=== PATIENT | female | born 1970 | race Caucasian/White ===

== ENCOUNTER 2018-05-28 09:24 | Outpatient (CLI) | payer OTHER ==
[2018-05-28 11:56] LABS: CREATININE,URINE 54.7 mg/dL; PROTEIN/CREATININE RATIO,URINE 0.2 (<=0.2)
== END 2018-05-28 09:25 | disposition home or self-care (01) ==
LOC: LAB.R 09:24
PROVIDERS: ATTEND Student in an Organized Health Care Education/Training Program
DX: R80.9 Proteinuria, unspecified (principal)
CPT/HCPCS: 82570; 84156

== ENCOUNTER 2018-05-30 12:27 | Outpatient (CLI) | payer OTHER ==
[2018-05-30 12:51] LABS: HGB - HEMOGLOBIN 13.8 g/dL (12.0-16.0)
[2018-05-30 13:11] LABS: CALCIUM 9.1 mg/dL (8.5-10.3); CREATININE 0.9 mg/dL (0.4-1.0)
== END 2018-05-30 12:28 | disposition home or self-care (01) ==
LOC: LAB 12:27
PROVIDERS: ATTEND Student in an Organized Health Care Education/Training Program
DX: N05.9 Unspecified nephritic syndrome with unspecified morphologic changes (principal); R80.9 Proteinuria, unspecified; D64.9 Anemia, unspecified
CPT/HCPCS: 36415; 80048; 85014; 85018

== ENCOUNTER 2018-09-20 07:19 | Emergency (ER) | payer OTHER ==
[2018-09-20 07:28] VITALS: BP 148/87
[2018-09-20 08:00] LABS: BILIRUBIN,URINE NEGATIVE (NEGATIVE); GLUCOSE, URINE (UA) NEGATIVE (NEGATIVE); KETONES,URINE (UA) NEGATIVE (NEGATIVE); LEUKOCYTE ESTERASE, URINE NEGATIVE (NEGATIVE); NITRITE,URINE NEGATIVE (NEGATIVE); OCCULT BLOOD,URINE NEGATIVE (NEGATIVE); PROTEIN,URINE NEGATIVE (NEGATIVE); UROBILINOGEN,URINE 0.2 (NORMAL) E.U./dL (NORMAL)
[2018-09-20 08:02] LABS: CLARITY,URINE CLEAR (CLEAR); HCG UR QUAL NEGATIVE
--- NOTE | 2018-09-20 08:30 | ED Physician Documentation ---
PD HPI BACK PAIN - Stated complaint Stated Complaint: BACK PX - Chief complaint Chief Complaint: Back Pain - History obtained from History obtained from: Patient - History of Present Illness Timing - onset: How many days ago (2) Timing - duration: Years (10) Timing - details: Gradual onset, Intermittant Pain level max: 7 Pain level now: 7 Location: Lower, Left Quality: Pain, Spasm, Similar to prior episodes Associated symptoms: No: Fever, Weakness, Numbness, Incontinent of urine, Hematuria, Incontinent of stool Improves with: Nothing Worsened by: Movement Contributing factors: No: Trauma Similar symptoms before: Work up / diagnostics Recently seen: Not recently seen - Additional information Additional information: 48-year-old menopausal woman here with history of chronic back pain the past 10 years because she was rough with her back and worked in the here with complain of flaring up of her chronic back pain the past 2 days. Patient denies any recent trauma, twisting injuries. She denies any associated numbness or incontinence. Patient states she had been workup including an MRI at [facility] in [place] Which showed herniated disc of L2-S1, spinal stenosis in degenerative joint disease. 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 She stated she had a Vicodin from 3 years ago but did not take it.She also has not taken any Tylenol. Review of Systems Ten Systems: 10 systems reviewed and negative Constitutional: denies: Fever, Myalgias Cardiac: denies: Chest pain / pressure Respiratory: denies: Dyspnea GI: denies: Abdominal Pain, Nausea, Vomiting, Constipation : denies: Dysuria, Frequency Skin: denies: Rash Musculoskeletal: reports: Back pain. denies: Extremity pain, Extremity swelling Neurologic: denies: Generalized weakness, Focal weakness, Numbness PD PAST MEDICAL HISTORY - Past Medical History Past Medical History: Yes Musculoskeletal: Chronic back pain - Past Surgical History Past Surgical History: No - Present Medications Home Medications: Ambulatory Orders Medication Instructions Recorded Confirmed Cyclobenzaprine [Flexeril] 10 mg PO TID PRN #20 tablet 09/20/18 Furosemide [Lasix] 20 mg PO DAILY 09/20/18 09/20/18 Hydrocodone/Acetaminophen 1 - 2 each PO Q6H PRN #14 tablet 09/20/18 [Hydrocodon-Acetaminophen 5-325] Lidocaine Patch 5% [Lidoderm Patch] 1 patch TOP DAILY PRN #10 patch 09/20/18 PARoxetine [Paxil] 20 mg PO DAILY 09/20/18 09/20/18 RX: Losartan [Cozaar] 50 mg PO BID 09/20/18 09/20/18 RX: Metoprolol Tartrate 50 mg PO BID 09/20/18 09/20/18 - Allergies Allergies/Adverse Reactions: Allergies Allergy/AdvReac Type Severity Reaction Status Date / Time codeine Allergy Hives Verified 09/20/18 07:29 ciprofloxacin [From Cipro] AdvReac Cramps Verified 09/20/18 07:29 NSAIDS (Non-Steroidal AdvReac Unknown Verified 09/20/18 07:29 Anti-Inflamma - Social History Does the pt smoke?: No Smoking Status: Never smoker Does the pt drink ETOH?: No Does the pt have substance abuse?: No - Immunizations Immunizations are current?: Yes - POLST Patient has POLST: No PD ED PE NORMAL - Vitals Vital signs reviewed: Yes - General General: Alert and oriented X 3, No acute distress, Well developed/nourished - HEENT HEENT: Moist mucous membranes - Neck Neck: Supple, no meningeal sign - Cardiac Cardiac: RRR, No murmur - Respiratory Respiratory: Clear bilaterally - Abdomen Abdomen: Normal bowel sounds, Soft, Non tender, Non distended - Back Back: No CVA TTP, No spinal TTP, Other (Positive left leg raising. Appears uncomfortable when she is turning and attempting to sit up.) - Derm Derm: Warm and dry - Extremities Extremities: No deformity, No tenderness to palpate, Normal ROM s pain, No edema - Neuro Neuro: Alert and oriented X 3, No motor deficit, No sensory deficit - Psych Psych: Normal mood, Normal affect Results - Vitals Vitals: Vital Signs - 24 hr 09/20/18 07:24 Temperature 36.0 C L Heart Rate 78 Respiratory 16 Rate Blood Pressure 148/87 H O2 Saturation 99 Oxygen O2 Source Room air - Labs Labs: Laboratory Tests 09/20/18 07:47 Urine Color YELLOW Urine Clarity CLEAR Urine pH 6.0 Ur Specific Cucumber 1.010 Urine Protein NEGATIVE Urine Glucose (UA) NEGATIVE Urine Ketones NEGATIVE Urine Occult Blood NEGATIVE Urine Nitrite NEGATIVE Urine Bilirubin NEGATIVE Urine Urobilinogen 0.2 (NORMAL) Ur Leukocyte Esterase NEGATIVE Ur Microscopic Review NOT INDICATED Urine Culture Comments NOT INDICATED Urine HCG, Qual NEGATIVE PD MEDICAL DECISION MAKING - ED course Complexity details: considered differential (Chronic back pain flareup,Lumbar strain, DJD), d/w patient Departure - Departure Disposition: 01 Home, Self Care Clinical Impression: Back pain Qualifiers: Back pain location: low back pain Chronicity: chronic Back pain laterality: left Sciatica presence: with sciatica Sciatica laterality: sciatica of left side Qualified Code(s): M54.42 - Lumbago with sciatica, left side; G89.29 - Other chronic pain Sciatica Qualifiers: Laterality: left Qualified Code(s): M54.32 - Sciatica, left side Condition: Stable Instructions: ED Neck Back Pain General Prescriptions: Cyclobenzaprine [Flexeril] 10 mg PO TID PRN #20 tablet PRN Reason: Spasms Hydrocodone/Acetaminophen [Hydrocodon-Acetaminophen 5-325] 1 - 2 each PO Q6H PRN #14 tablet PRN Reason: pain Lidocaine Patch 5% [Lidoderm Patch] 1 patch TOP DAILY PRN #10 patch PRN Reason: pain Comments: Maintain safety while taking the muscle relaxant and pain medication. Avoid constipation by taking [id number] stool softener, drinking lots of water and eating high-fiber foods. Follow-up with your primary doctor in a week for reevaluation and referral to pain management. If worse return to the emergency room. Forms: Activity restrictions Discharge Date/Time: 09/20/18 08:54
== END 2018-09-20 08:54 | disposition home or self-care (01) ==
LOC: ED 07:19
DX: N05.0 Unspecified nephritic syndrome with minor glomerular abnormality (principal); G89.29 Other chronic pain; M54.42 Lumbago with sciatica, left side
CPT/HCPCS: 81001; 81003; 81025; 87086; 99283

== ENCOUNTER 2018-12-18 07:54 | Emergency (ER) | payer BC, OTHER ==
[2018-12-18 08:08] VITALS: BP 157/94
[2018-12-18] MEDS ORDERED: DEXAMETHASONE 10 MG/ML VIAL PO STA (08:11)
--- NOTE | 2018-12-18 08:14 | ED Physician Documentation ---
PD HPI BACK PAIN - Stated complaint Stated Complaint: BACK PX - Chief complaint Chief Complaint: Back Pain - History obtained from History obtained from: Patient, Family - History of Present Illness Timing - onset: How many days ago (3) Timing - duration: Days (3) Timing - details: Gradual onset, Still present Location: Lower, Left Quality: Pain, Spasm, Sharp, Similar to prior episodes Associated symptoms: Incontinent of urine. No: Fever, Weakness, Numbness, Unable to urinate, Hematuria, Incontinent of stool Improves with: Rest, Position, Meds Worsened by: Movement Contributing factors: Other (does not know of specific injury) Similar symptoms before: Diagnosis (sciatica) Recently seen: Not recently seen - Additional information Additional information: 48-year-old female with chronic low back pain has developed an exacerbation of her pain over the past 3 days and she is quite uncomfortable with this. She is had similar episode in August of last year. She does not know of a specific loading injury to her back associated with this episode. She has been using a heating pack which feels good while it is on but has not resolved the situation. Patient has remaining muscle relaxant from her prior visit. Review of Systems Constitutional: denies: Fever Eyes: denies: Decreased vision Ears: denies: Ear pain Nose: denies: Congestion Throat: denies: Sore throat Cardiac: denies: Chest pain / pressure, Palpitations Respiratory: denies: Dyspnea, Cough GI: denies: Abdominal Pain, Nausea, Vomiting : reports: Incontinent ("leaks"). denies: Dysuria, Frequency Skin: denies: Rash Musculoskeletal: reports: Back pain. denies: Neck pain, Extremity pain PD PAST MEDICAL HISTORY - Past Medical History Musculoskeletal: Chronic back pain - Past Surgical History Past Surgical History: No - Present Medications Home Medications: Ambulatory Orders Medication Instructions Recorded Confirmed Cyclobenzaprine [Flexeril] 10 mg PO TID PRN #20 tablet 09/20/18 Furosemide [Lasix] 20 mg PO DAILY 09/20/18 09/20/18 Hydrocodone/Acetaminophen 1 - 2 each PO Q6H PRN #14 tablet 09/20/18 [Hydrocodon-Acetaminophen 5-325] Lidocaine Patch 5% [Lidoderm Patch] 1 patch TOP DAILY PRN #10 patch 09/20/18 Losartan [Cozaar] 50 mg PO BID 09/20/18 09/20/18 Metoprolol Tartrate 50 mg PO BID 09/20/18 09/20/18 PARoxetine [Paxil] 20 mg PO DAILY 09/20/18 09/20/18 Hydrocodone/Acetaminophen 1 - 2 each PO Q6H PRN #14 tablet 12/18/18 [Hydrocodon-Acetaminophen 5-325] - Allergies Allergies/Adverse Reactions: Allergies Allergy/AdvReac Type Severity Reaction Status Date / Time codeine Allergy Hives Verified 09/20/18 07:29 Penicillins Allergy Unknown Verified 12/18/18 08:09 ciprofloxacin [From Cipro] AdvReac Cramps Verified 09/20/18 07:29 NSAIDS (Non-Steroidal AdvReac Unknown Verified 09/20/18 07:29 Anti-Inflamma - Social History Does the pt smoke?: No Smoking Status: Never smoker Does the pt drink ETOH?: No Does the pt have substance abuse?: No - Immunizations Immunizations are current?: Yes - POLST Patient has POLST: No PD ED PE NORMAL - Vitals Vital signs reviewed: Yes (hypertensive) - General General: Alert and oriented X 3, No acute distress, Well developed/nourished - HEENT HEENT: Atraumatic, PERRL, EOMI - Respiratory Respiratory: No respiratory distress - Back Back: No CVA TTP, No spinal TTP, Other (There is paraspinous muscle tenderness to the left lower lumbar area extending into the sciatic notch on the left side. ) - Derm Derm: Normal color, Warm and dry, No rash - Extremities Extremities: No deformity, No edema, Other (symetric dorsiflexion. ) - Neuro Neuro: Alert and oriented X 3, No motor deficit, No sensory deficit, Normal speech Eye Opening: Spontaneous Motor: Obeys Commands Verbal: Oriented GCS Score: 15 - Psych Psych: Normal mood, Normal affect Results - Vitals Vitals: Vital Signs - 24 hr 12/18/18 08:05 Temperature 36.5 C Heart Rate 75 Respiratory 18 Rate Blood Pressure 157/94 H O2 Saturation 99 Oxygen O2 Source Room air PD MEDICAL DECISION MAKING - ED course Complexity details: considered differential, d/w patient, d/w family ED course: 48-year-old female with a 3-day history of sciatica is administered dexamethasone and we will put her on some pain medication muscle relaxant she will follow-up with her primary. Departure - Departure Disposition: Home, Self Care Clinical Impression: Sciatica Qualifiers: Laterality: left Qualified Code(s): M54.32 - Sciatica, left side Condition: Stable Instructions: ED Sciatica [facility] [Other] Prescriptions: Hydrocodone/Acetaminophen [Hydrocodon-Acetaminophen 5-325] 1 - 2 each PO Q6H PRN #14 tablet PRN Reason: pain Forms: Activity restrictions
== END 2018-12-18 08:47 | disposition home or self-care (01) ==
LOC: ED 07:54
DX: M54.32 Sciatica, left side (principal)
CPT/HCPCS: 99283

== ENCOUNTER 2019-05-12 09:04 | Emergency (ER) | payer OTHER ==
[2019-05-12 09:15] VITALS: BP 147/103
--- NOTE | 2019-05-12 09:56 | ED Physician Documentation ---
PD HPI GI BLEED - Stated complaint Stated Complaint: FEMALE - Chief complaint Chief Complaint: Abd Pain - History obtained from History obtained from: Patient - History of Present Illness Timing - onset: Today Timing - duration: Hours Timing - details: Abrupt onset, Now resolved Associated symptoms: BRBPR Contributing factors: Other (recently not eating well) Similar symptoms before: Diagnosis (rectal tear) Recently seen: Not recently seen - Additional information Additional information: 49-year-old female with a history of irritable bowel syndrome had a bowel movement this morning and following that she went to wipe had blood on the paper and on the stool in the commode. She has a history of irritable bowel and she has not been eating well recently she had a bout of diarrhea over the past week. She has had similar issue a number of times previously related to hemorrhoids. Review of Systems Constitutional: denies: Fever Eyes: denies: Decreased vision Ears: denies: Ear pain Nose: denies: Congestion Throat: denies: Sore throat Respiratory: denies: Cough GI: reports: Diarrhea, Bloody / black stool. denies: Abdominal Pain, Nausea, Vomiting : denies: Dysuria, Frequency Skin: denies: Rash Musculoskeletal: denies: Neck pain, Back pain, Extremity pain PD PAST MEDICAL HISTORY - Past Medical History Past Medical History: Yes Musculoskeletal: Chronic back pain - Past Surgical History Past Surgical History: No - Present Medications Home Medications: Ambulatory Orders Medication Instructions Recorded Confirmed Cyclobenzaprine [Flexeril] 10 mg PO TID PRN #20 tablet 09/20/18 Furosemide [Lasix] 20 mg PO DAILY 09/20/18 09/20/18 Hydrocodone/Acetaminophen 1 - 2 each PO Q6H PRN #14 tablet 09/20/18 [Hydrocodon-Acetaminophen 5-325] Lidocaine Patch 5% [Lidoderm Patch] 1 patch TOP DAILY PRN #10 patch 09/20/18 Losartan [Cozaar] 50 mg PO BID 09/20/18 09/20/18 Metoprolol Tartrate 50 mg PO BID 09/20/18 09/20/18 PARoxetine [Paxil] 20 mg PO DAILY 09/20/18 09/20/18 Hydrocodone/Acetaminophen 1 - 2 each PO Q6H PRN #14 tablet 12/18/18 [Hydrocodon-Acetaminophen 5-325] Hydrocortisone/Pramoxine 1 gm RC DAILY #10 gm 05/12/19 [Proctofoam-Hc Foam] - Allergies Allergies/Adverse Reactions: Allergies Allergy/AdvReac Type Severity Reaction Status Date / Time codeine Allergy Hives Verified 05/12/19 09:12 Penicillins Allergy Unknown Verified 05/12/19 09:12 ciprofloxacin [From Cipro] AdvReac Cramps Verified 05/12/19 09:12 NSAIDS (Non-Steroidal AdvReac Unknown Verified 05/12/19 09:12 Anti-Inflamma - Social History Does the pt smoke?: Yes Smoking Status: Current every day smoker Does the pt drink ETOH?: No Does the pt have substance abuse?: No - Immunizations Immunizations are current?: Yes - POLST Patient has POLST: No PD ED PE NORMAL - Vitals Vital signs reviewed: Yes (hypertensive ) - General General: Alert and oriented X 3, No acute distress, Well developed/nourished - HEENT HEENT: Atraumatic, PERRL, EOMI - Respiratory Respiratory: No respiratory distress - Rectal Rectal: Other (With Ann as cable swager the rectum is examined and there are minimally inflamed external and engourged internal hemorrhoids with no blood in the vault. ) - Derm Derm: Normal color, Warm and dry, No rash - Extremities Extremities: No deformity, No edema - Neuro Neuro: Alert and oriented X 3, arborist 2-12 intact, No motor deficit, No sensory deficit, Normal speech Eye Opening: Spontaneous Motor: Obeys Commands Verbal: Oriented GCS Score: 15 - Psych Psych: Normal mood, Normal affect Results - Vitals Vitals: Vital Signs - 24 hr 05/12/19 09:08 Temperature 35.8 C L Heart Rate 79 Respiratory 19 Rate Blood Pressure 147/103 H O2 Saturation 100 Oxygen O2 Source Room air PD MEDICAL DECISION MAKING - ED course Complexity details: considered differential, d/w patient ED course: 49 y/o female with a history of IBS has developed acute bleeding this morning after several days of diarrhea. She has mildly inflamed internal and external hemorrhoids. Departure - Departure Disposition: 01 Home, Self Care Clinical Impression: Bleeding hemorrhoids Condition: Stable Instructions: ED Hemorrhoids, ED Hematochezia Stable Follow-Up: Jose Carlos Ramos MD [Primary Care Provider] - Prescriptions: Hydrocortisone/Pramoxine [Proctofoam-Hc Foam] 1 gm RC DAILY #10 gm Discharge Date/Time: 05/12/19 10:05
== END 2019-05-12 10:05 | disposition home or self-care (01) ==
LOC: ED 09:04
DX: K64.8 Other hemorrhoids (principal); K64.4 Residual hemorrhoidal skin tags; Z87.19 Personal history of other diseases of the digestive system; F17.200 Nicotine dependence, unspecified, uncomplicated
CPT/HCPCS: 99282; 99284

== ENCOUNTER 2019-11-09 10:31 | Emergency (ER) | payer BC, OTHER ==
--- NOTE | 2019-11-09 11:26 | XRAY Report ---
Reason: trauma/ pain Procedure Date: 11/09/2019 Accession Number: [id number] / [id number] Procedure: XR - Foot 3 View LT CPT Code: Final Report FULL RESULT: EXAM: LEFT FOOT RADIOGRAPHY EXAM DATE: 11/09/2019 10:50 AM. CLINICAL HISTORY: Left superior foot pain after misstep with rolling onto lateral portion of foot last night. COMPARISON: None. TECHNIQUE: 3 views. FINDINGS: Bones: Tiny accessory os peroneum. 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 No fracture or bone lesion. Joints: Mild hallux valgus. Mild joint space loss and osteophyte ptosis at the first MTP joint. Soft Tissues: Normal. No evident focal soft tissue swelling. IMPRESSION: 1. Mild hallux valgus with associated mild first MTP joint osteoarthritis. 2. No acute bony abnormality. RADIA
--- NOTE | 2019-11-09 12:38 | ED Physician Documentation ---
PD HPI LOWER EXT INJURY - Stated complaint Stated Complaint: L FOOT INJURY - Chief complaint Chief Complaint: Trauma Ext - History obtained from History obtained from: Patient - History of Present Illness PD HPI LOW EXT INJURY LOCATION: Left, Foot Type of injury: Twist Timing - onset: Last night Timing - details: Abrupt onset Pain level max: 5 Improved by: Rest Worsened by: Moving, Palpating Associated symptoms: No: Weakness, Numbness, Tingling, Swelling - Additional information Additional information: Patient with a left foot injury last night when she twisted her left foot. Wors e with walking and better with rest. Review of Systems Musculoskeletal: denies: Neck pain, Back pain Neurologic: denies: Focal weakness, Numbness, Headache PD PAST MEDICAL HISTORY - Past Medical History Cardiovascular: Arrhythmia Respiratory: None Neuro: None Endocrine/Autoimmune: None GI: None UR COORDINATOR: None : Other HEENT: Chronic vision loss Musculoskeletal: Chronic back pain Derm: Psoriasis Other Past Medical History: nephrotic syndrome. scoriatic arthritis. - Past Surgical History Past Surgical History: No - Present Medications Home Medications: Ambulatory Orders Medication Instructions Recorded Confirmed Cyclobenzaprine [Flexeril] 10 mg PO TID PRN #20 tablet 09/20/18 Furosemide [Lasix] 20 mg PO DAILY 09/20/18 09/20/18 Hydrocodone/Acetaminophen 1 - 2 each PO Q6H PRN #14 tablet 09/20/18 [Hydrocodon-Acetaminophen 5-325] Lidocaine Patch 5% [Lidoderm Patch] 1 patch TOP DAILY PRN #10 patch 09/20/18 Losartan [Cozaar] 50 mg PO BID 09/20/18 09/20/18 Metoprolol Tartrate 50 mg PO BID 09/20/18 09/20/18 PARoxetine [Paxil] 20 mg PO DAILY 09/20/18 09/20/18 Hydrocodone/Acetaminophen 1 - 2 each PO Q6H PRN #14 tablet 12/18/18 [Hydrocodon-Acetaminophen 5-325] Hydrocortisone/Pramoxine 1 gm RC DAILY #10 gm 05/12/19 [Proctofoam-Hc Foam] - Allergies Allergies/Adverse Reactions: Allergies Allergy/AdvReac Type Severity Reaction Status Date / Time codeine Allergy Hives Verified 11/09/19 10:39 Penicillins Allergy Unknown Verified 11/09/19 10:39 ciprofloxacin [From Cipro] AdvReac Cramps Verified 11/09/19 10:39 NSAIDS (Non-Steroidal AdvReac Unknown Verified 11/09/19 10:39 Anti-Inflamma - Social History Does the pt smoke?: Yes Smoking Status: Current every day smoker Does the pt drink ETOH?: Yes Does the pt have substance abuse?: No - Immunizations Immunizations are current?: No Immunizations: TDAP >10years/unknown - POLST Patient has POLST: No PD ED PE NORMAL - Vitals Vital signs reviewed: Yes - General General: Alert and oriented X 3, No acute distress - Derm Derm: Warm and dry - Extremities Extremities: Other (Mild tenderness to palpation along the dorsolateral aspect of the left foot. Neurovascular intact. No deformity. Otherwise normal examination of the foot and ankle.) - Neuro Neuro: Alert and oriented X 3 Results - Vitals Vitals: Vital Signs - 24 hr 11/09/19 10:37 Temperature 36.3 C L Heart Rate 70 Respiratory 16 Rate Blood Pressure 126/68 O2 Saturation 99 Oxygen O2 Source Room air - Rads (name of study) Left foot x-ray Radiology: Prelim report reviewed, EMP read contemporaneously, See rad report (No acute abnormality) PD MEDICAL DECISION MAKING - ED course Complexity details: reviewed results, considered differential, d/w patient ED course: Patient with a left foot sprain. Will utilize Motrin and or Tylenol at home as needed for pain. Placed in a postoperative shoe. No acute findings on x-ray. Patient counseled regarding signs and symptoms for which I believe and urgent re-evaluation would be necessary. Patient with good understanding of and agreement to plan and is comfortable going home at this time This document was made in part using voice recognition software. While efforts are made to proofread this document, sound alike and grammatical errors may occur. Departure - Departure Disposition: 01 Home, Self Care Clinical Impression: Sprain of left foot Qualifiers: Encounter type: initial encounter Qualified Code(s): S93.602A - Unspecified sprain of left foot, initial encounter Condition: Good Instructions: ED Sprain Foot Follow-Up: Gavi Alfaro ARNP, CYTOTECHNOLOGIST/CYTOLOGY SUPERVISOR-C [Primary Care Provider] - Within 1 week Comments: Return if you worsen. You can use Motrin and/or Tylenol as needed for pain. Your x-ray does not show any acute abnormalities today. The postoperative shoe should help with the pain as well.
[2019-11-09 12:51] VITALS: BP 135/61
== END 2019-11-09 12:51 | disposition home or self-care (01) ==
LOC: ED 10:31
DX: S93.602A Unspecified sprain of left foot, initial encounter (principal); W17.89XA Other fall from one level to another, initial encounter; X50.1XXA Overexertion from prolonged static or awkward postures, initial encounter; F17.200 Nicotine dependence, unspecified, uncomplicated
CPT/HCPCS: 99283

== ENCOUNTER 2020-09-21 13:35 | Outpatient (CLI) | payer OTHER ==
[2020-09-21 13:58] LABS: BASOPHILS # (AUTO) 0.1 10^3/uL (0.0-0.1); BASOPHILS % (AUTO) 0.6 %; EOSINOPHILS # (AUTO) 0.3 10^3/uL (0.0-0.7); EOSINOPHILS % (AUTO) 3.2 %; HGB - HEMOGLOBIN 14.7 g/dL (12.0-16.0); LYMPHOCYTES # (AUTO) 2.3 10^3/uL (1.5-3.5); LYMPHOCYTES % (AUTO) 24.1 %; MEAN CORPUSCULAR HEMOGLOBIN 30.9 pg (27.0-31.0); MEAN CORPUSCULAR HGB CONC 32.2 g/dL (32.0-36.0); MEAN CORPUSCULAR VOLUME 95.8 fL (81.0-99.0); MEAN PLATELET VOLUME 9.6 fL (7.9-10.8); MONOCYTES # (AUTO) 0.7 10^3/uL (0.0-1.0); MONOCYTES % (AUTO) 6.8 %; NEUTROPHILS # (AUTO) 6.2 10^3/uL (1.5-6.6); NEUTROPHILS % (AUTO) 64.9 %; PLT - PLATELET COUNT 343 10^3/uL (130-450); RED BLOOD COUNT 4.76 10^6/uL (4.20-5.40); RED CELL DISTRIBUTION WIDTH 14.5 % (12.0-15.0); WHITE BLOOD COUNT 9.6 x10^3/uL (4.8-10.8)
[2020-09-21 14:23] LABS: CHOLESTEROL 242 mg/dL; HDL CHOLESTEROL 48 mg/dL; LDL CHOLESTEROL,CALCULATED 158 mg/dL; LDL/HDL RATIO 3.3 (<4.4); VLDL CHOLESTEROL 36 mg/dL
[2020-09-21 19:13] LABS: HEMOGLOBIN A1c% 6.2 % (4.27-6.07)
== END 2020-09-21 13:36 | disposition home or self-care (01) ==
LOC: LAB 13:35
PROVIDERS: ATTEND Nurse Practitioner
DX: L40.50 Arthropathic psoriasis, unspecified (principal); Z79.899 Other long term (current) drug therapy; E55.9 Vitamin D deficiency, unspecified; Z13.228 Encounter for screening for other metabolic disorders; Z13.220 Encounter for screening for lipoid disorders; R53.83 Other fatigue; R73.01 Impaired fasting glucose; Z20.828 Contact with and (suspected) exposure to other viral communicable diseases
CPT/HCPCS: 36415; 80061; 82306; 82607; 83036; 83721; 84443; 85025; 86769

== ENCOUNTER 2022-01-25 10:31 | Emergency (ER) | payer OTHER ==
[2022-01-25] MEDS ORDERED: SULFAMETH/TRIMETH DS 800/160 MG TABLET PO STA (12:31)
--- NOTE | 2022-01-25 12:34 | ED Physician Documentation ---
History of Present Illness - Stated complaint Stated Complaint: FEMALE - Chief complaint Chief Complaint: Wound - History obtained from History obtained from: Patient - Additonal information Additional information: The patient comes to the emergency department with chief complaint of genital lesion. She states that it started after she Was itchy in her genital area after taking a strong Epson salt bath and began scratching in the area. She states that she began to notice that there is a very small "bump" on her right vulva. This got worse over the last couple of days and patient significant other states that now, it feels like the "water balloon". Patient denies any fevers or chills. She states it feels soft around the area. It is mildly painful. No drainage that she has noticed. She tried taking a hot bath last night to get it to drain but it did not. No other complaints at this time. Review of Systems Ten Systems: 10 systems reviewed and negative Constitutional: reports: Reviewed and negative Eyes: reports: Reviewed and negative Ears: reports: Reviewed and negative Nose: reports: Reviewed and negative Throat: reports: Reviewed and negative Cardiac: reports: Reviewed and negative Respiratory: reports: Reviewed and negative GI: reports: Reviewed and negative : reports: Other (Lesion) Skin: reports: Reviewed and negative Musculoskeletal: reports: Reviewed and negative Neurologic: reports: Reviewed and negative Psychiatric: reports: Reviewed and negative Endocrine: reports: Reviewed and negative Immunocompromised: reports: Reviewed and negative PD PAST MEDICAL HISTORY - Past Medical History Past Medical History: Yes Cardiovascular: Arrhythmia Respiratory: None Neuro: None Endocrine/Autoimmune: None GI: None 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 : Other HEENT: Chronic vision loss Musculoskeletal: Chronic back pain Derm: Psoriasis - Past Surgical History Past Surgical History: No - Present Medications Home Medications: Ambulatory Orders Medication Instructions Recorded Confirmed Cyclobenzaprine [Flexeril] 10 mg PO TID PRN #20 tablet 09/20/18 Furosemide [Lasix] 20 mg PO DAILY 09/20/18 09/20/18 Hydrocodone/Acetaminophen 1 - 2 each PO Q6H PRN #14 tablet 09/20/18 [Hydrocodon-Acetaminophen 5-325] Lidocaine Patch 5% [Lidoderm Patch] 1 patch TOP DAILY PRN #10 patch 09/20/18 Losartan [Cozaar] 50 mg PO BID 09/20/18 09/20/18 Metoprolol Tartrate 50 mg PO BID 09/20/18 09/20/18 PARoxetine [Paxil] 20 mg PO DAILY 09/20/18 09/20/18 Hydrocodone/Acetaminophen 1 - 2 each PO Q6H PRN #14 tablet 12/18/18 [Hydrocodon-Acetaminophen 5-325] Hydrocortisone/Pramoxine 1 gm RC DAILY #10 gm 05/12/19 [Proctofoam-Hc Foam] Sulfamethox/Trimeth 800/160 1 each PO BID #14 tablet 01/25/22 [Bactrim Ds 800/160] - Allergies Allergies/Adverse Reactions: Allergies Allergy/AdvReac Type Severity Reaction Status Date / Time codeine Allergy Hives Verified 11/09/19 10:39 Iodinated Contrast Media Allergy Hives Verified 01/25/22 10:47 Penicillins Allergy Unknown Verified 11/09/19 10:39 polyethylene glycol 3350 Allergy Hives Verified 01/25/22 10:47 [From Miralax] ciprofloxacin [From Cipro] AdvReac Cramps Verified 11/09/19 10:39 NSAIDS (Non-Steroidal AdvReac Unknown Verified 11/09/19 10:39 Anti-Inflamma - Social History Does the pt smoke?: Yes Smoking Status: Current every day smoker Does the pt drink ETOH?: Yes Does the pt have substance abuse?: No - Immunizations Immunizations are current?: No Immunizations: TDAP >10years/unknown - POLST Patient has POLST: No PD ED PE NORMAL - Vitals Vital signs reviewed: Yes - General General: Alert and oriented X 3, No acute distress, Well developed/nourished - HEENT HEENT: Atraumatic, PERRL, EOMI, Moist mucous membranes - Neck Neck: Supple, no meningeal sign - Respiratory Respiratory: No respiratory distress - Female Female : Director Of Distance Learning present (Nurse Esha), Other (1 cm diameter fluctuant mass on anterior right vulva in the mucosa. No induration, tenderness, or edema of the tissue around. No drainage. No other lesions.) - Derm Derm: Normal color, Warm and dry, No rash - Extremities Extremities: No deformity - Neuro Neuro: Alert and oriented X 3 - Psych Psych: Normal mood, Normal affect Results - Vitals Vitals: Vital Signs - 24 hr 01/25/22 01/25/22 10:44 12:44 Temperature 36.4 C L 36.6 C Heart Rate 76 86 Respiratory 16 18 Rate Blood Pressure 163/90 H 177/83 H O2 Saturation 98 98 Oxygen O2 Source Room air Procedures - Abscess I&D (location) Right vulva Preparation: Alcohol Incision: Needle aspiration, Purulent drainage Other: Pt tolerated well, Antibiotic prescribed PD MEDICAL DECISION MAKING - ED course Complexity details: considered differential, d/w patient ED course: Approximately 1 cc of purulent material was aspirated/expressed from the fluctuant area. No further drainage was able to be expressed after this, and the fluctuant area seem deflated. Patient was given a dose of Bactrim here. I have given her prescription for the same. We have discussed hot soaks and the usual indications for follow-up or return. Departure - Departure Disposition: 01 Home, Self Care Clinical Impression: Vulvar abscess Condition: Stable Instructions: ED Abscess IandD Prescriptions: Sulfamethox/Trimeth 800/160 [Bactrim Ds 800/160] 1 each PO BID #14 tablet Comments: Approximately 1 mL of pus was aspirated/expressed from the small abscess today. No further pus seems to be present within the cavity. You should take the antibiotics as directed. You may take hot baths to help express any further drainage that may want to build up. Please take all the antibiotics as directed until the course is finished. Discharge Date/Time: 01/25/22 12:49
[2022-01-25 12:45] VITALS: BP 177/83
== END 2022-01-25 12:49 | disposition home or self-care (01) ==
LOC: ED 10:31
DX: N76.4 Abscess of vulva (principal); F17.200 Nicotine dependence, unspecified, uncomplicated
CPT/HCPCS: 56405; 99283; 99284; A9270

== ENCOUNTER 2022-02-14 12:37 | Outpatient (CLI) | payer OTHER ==
--- NOTE | 2022-02-14 15:15 | XRAY Report ---
PROCEDURE: Knee 2 View LT INDICATIONS: L KNEE PX TECHNIQUE: 2 views of the left knee(s) were acquired. COMPARISON: None. FINDINGS: Bones: No fractures or dislocations. Mild to moderate medial femoral tibial compartment osteoarthrit is is seen with joint space narrowing and subchondral sclerosis. Mild osteoarthritic changes also see n in patellofemoral compartment. No suspicious bony lesions. Soft tissues: There is small to moderate suprapatellar joint effusion. No suspicious soft tissue khanh cifications. 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 No fracture or dislocation. Small to moderate joint effusion. Reviewed by: Yeison Reaves MD on 02/14/2022 3:14 PM PDT Approved by: Yeison Reaves MD on 02/14/2022 3:14 PM PDT Station ID: [id number]
== END 2022-02-14 23:59 | disposition home or self-care (01) ==
LOC: DI.N 12:37
PROVIDERS: ATTEND Nurse Practitioner
DX: M17.12 Unilateral primary osteoarthritis, left knee (principal); M25.462 Effusion, left knee

== ENCOUNTER 2022-12-19 23:39 | Emergency (ER) | payer OTHER ==
[2022-12-19] MEDS ORDERED: SODIUM CHLORIDE 0.9% 1,000 ML IV STA (23:52)
[2022-12-19] MEDS ORDERED: ONDANSETRON 4 MG/2 ML VIAL IVP STA (23:52)
[2022-12-20] LABS: BASOPHILS # (AUTO) 0.1 10^3/uL (0.0-0.1); BASOPHILS % (AUTO) 0.4 %; EOSINOPHILS # (AUTO) 0.2 10^3/uL (0.0-0.7); EOSINOPHILS % (AUTO) 0.9 %; HCT - HEMATOCRIT 49.2 % (37.0-47.0); HGB - HEMOGLOBIN 16.2 g/dL (12.0-16.0); LYMPHOCYTES # (AUTO) 1.2 10^3/uL (1.5-3.5); LYMPHOCYTES % (AUTO) 6.2 %; MEAN CORPUSCULAR HEMOGLOBIN 30.5 pg (27.0-31.0); MEAN CORPUSCULAR HGB CONC 32.9 g/dL (32.0-36.0); MEAN CORPUSCULAR VOLUME 92.5 fL (81.0-99.0); MEAN PLATELET VOLUME 9.8 fL (7.9-10.8); MONOCYTES # (AUTO) 0.7 10^3/uL (0.0-1.0); MONOCYTES % (AUTO) 3.7 %; NEUTROPHILS # (AUTO) 17.6 10^3/uL (1.5-6.6); NEUTROPHILS % (AUTO) 88.4 %; PLT - PLATELET COUNT 367 10^3/uL (130-450); RED BLOOD COUNT 5.32 10^6/uL (4.20-5.40); RED CELL DISTRIBUTION WIDTH 14.1 % (12.0-15.0); WHITE BLOOD COUNT 19.9 x10^3/uL (4.8-10.8)
--- NOTE | 2022-12-20 00:03 | ED Physician Documentation ---
PD HPI NVD - Stated complaint Stated Complaint: NAUSEA - Chief complaint Chief Complaint: Abd Pain - History obtained from History obtained from: Patient - Additonal information Additional information: Patient is a 52-year-old female presenting for evaluation of nausea, vomiting and diarrhea starting several hours ago. Patient reports that around 2:00 this afternoon she was stung by a bee in the left upper arm. She does have a history of reactions with wasps that includes shortness of breath, throat swelling. She took a dose of hydroxyzine right after and took a long nap. When she woke up she took an additional dose of hydroxyzine and also a dose of Valium as she was feeling anxious. She then reports having nausea and multiple episodes of emesis and diarrhea. Per her she did have a chicken and rice bowl from [employer] today And afterwards started having some loose stools. She reports feeling fine this morning. She denies having any symptoms of chest tightness, difficulty breathing, throat swelling.She denies blood in stools or emesis. She denies a history of prior abdominal surgeries. Review of Systems Constitutional: denies: Fever Cardiac: denies: Chest pain / pressure Respiratory: denies: Dyspnea GI: reports: Nausea, Vomiting, Diarrhea. 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 : Other HEENT: Chronic vision loss Musculoskeletal: Chronic back pain Derm: Psoriasis - Past Surgical History Past Surgical History: No - Present Medications Home Medications: Ambulatory Orders Medication Instructions Recorded Confirmed Metoprolol Tartrate 50 mg PO BID 09/20/18 12/20/22 PARoxetine [Paxil] 20 mg PO DAILY 09/20/18 12/20/22 Atorvastatin [Lipitor] 10 mg ORAL QPM 12/20/22 12/20/22 Clobetasol 0.05% Oint [Temovate 15 applic TOP DAILY 12/20/22 12/20/22 0.05% Oint] Losartan/Hydrochlorothiazide 1 each PO DAILY 12/20/22 12/20/22 [Hyzaar 50-12.5 Tablet] Ondansetron Odt [Zofran] 4 mg TL Q6H PRN #10 tablet 12/20/22 diazePAM [Valium] 5 mg PO ONCE PRN 12/20/22 12/20/22 hydrOXYzine HCL [Hydroxyzine HCl] 25 - 50 mg PO QID PRN 12/20/22 12/20/22 - Allergies Allergies/Adverse Reactions: Allergies Allergy/AdvReac Type Severity Reaction Status Date / Time codeine Allergy Hives Verified 12/19/22 23:44 Iodinated Contrast Media Allergy Hives Verified 12/19/22 23:44 Penicillins Allergy Unknown Verified 12/19/22 23:44 polyethylene glycol 3350 Allergy Hives Verified 12/19/22 23:44 [From Miralax] ciprofloxacin [From Cipro] AdvReac Cramps Verified 12/19/22 23:44 NSAIDS (Non-Steroidal AdvReac Unknown Verified 12/19/22 23:44 Anti-Inflamma - Social History Does the pt smoke?: Yes Smoking Status: Current every day smoker Does the pt drink ETOH?: Yes Does the pt have substance abuse?: No - Immunizations Immunizations are current?: No Immunizations: TDAP >10years/unknown - POLST Patient has POLST: No PD ED PE NORMAL - General General: Alert and oriented X 3, No acute distress, Well developed/nourished - HEENT HEENT: Atraumatic - Neck Neck: Supple, no meningeal sign - Cardiac Cardiac: RRR - Respiratory Respiratory: No respiratory distress, Clear bilaterally - Abdomen Abdomen: Normal bowel sounds, Soft, Non tender, Non distended - Extremities Extremities: Other (Small area of erythema to left upper extremity without signs of cellulitis, fluctuance to suggest abscess) Results - Vitals Vitals: Vital Signs - 24 hr 12/19/22 12/20/22 23:44 00:57 Temperature 36.6 C 36.9 C Heart Rate 100 98 Respiratory 16 16 Rate Blood Pressure 139/87 H 141/72 H O2 Saturation 96 100 Oxygen O2 Source Room air - Labs Labs: Laboratory Tests 12/19/22 12/19/22 23:57 23:57 WBC 19.9 H RBC 5.32 Hgb 16.2 H Hct 49.2 H MCV 92.5 MCH 30.5 MCHC 32.9 RDW 14.1 Plt Count 367 MPV 9.8 Neut # (Auto) 17.6 H Lymph # (Auto) 1.2 L Wilkes # (Auto) 0.7 Eos # (Auto) 0.2 Baso # (Auto) 0.1 Absolute Nucleated RBC 0.00 Nucleated RBC % 0.0 Sodium 137 Potassium 3.5 Chloride 100 L Carbon Dioxide 26 Anion Gap 11.0 BUN 17 Creatinine 0.9 Estimated GFR (MDRD) 66 L Glucose 185 H Calcium 9.6 Total Bilirubin 0.4 AST 24 ALT 33 Alkaline Phosphatase 62 Total Protein 8.0 Albumin 4.6 Globulin 3.4 Albumin/Globulin Ratio 1.4 Lipase 73 H PD Medical Decision Making - ED course Complexity details: reviewed results, re-evaluated patient, d/w patient, d/w family ED course: Patient presenting for evaluation of nausea, vomiting and diarrhea. Vital signs are stable and her abdominal exam is benign.Patient did have an episode of emesis and diarrhea upon arrival to the emergency department. Both are nonbloody.CBC and chemistries were obtained and reviewed and significant for leukocytosis of 19,000 along with a mildly low chloride of 100 Lipase of 73.Patient was given 1 L of NS and IV Zofran with significant improvement in her symptoms. She had no further episodes of emesis or diarrhea while here and was tolerating p.o.Her repeat abdominal exam is benign thus I do not feel abdominal imaging would be helpful at this time. Suspect her leukocytosis is likely reactive from the vomiting.Symptoms and vitals do not suggest anaphylaxis in regards to the bee sting she sustained earlier in the day. Patient was counseled on continued supportive care as well as concerning symptoms to return for. Departure - Departure Disposition: 01 Home, Self Care Clinical Impression: Nausea vomiting and diarrhea, Leukocytosis Condition: Stable Instructions: ED Diet Vomiting Diarrhea Prescriptions: Ondansetron Odt [Zofran] 4 mg TL Q6H PRN #10 tablet PRN Reason: Nausea / Vomiting Comments: Please continue to stay hydrated with fluids. I have sent a medication To help with the nausea to [facility] in [place]. If you continue to have significant amounts of diarrhea you can consider [id number] Imodium. If you develop blood in your stools, have worsening symptoms such as continued vomiting, abdominal pain or any new concerns then please return to the emergency department. Discharge Date/Time: 12/20/22 01:12
[2022-12-20 00:14] LABS: ALBUMIN 4.6 g/dL (3.2-5.5); ALBUMIN/GLOBULIN RATIO 1.4 (1.0-2.2); BILIRUBIN,TOTAL 0.4 mg/dL (0.2-1.0); CALCIUM 9.6 mg/dL (8.5-10.3); CREATININE 0.9 mg/dL (0.4-1.0); POTASSIUM 3.5 mmol/L (3.5-5.0)
[2022-12-20] MEDS ORDERED: LOPERAMIDE 2 MG CAPSULE PO STA (00:44)
[2022-12-20] MEDS: ONDANSETRON ODT 4 MG Prepack 2 TL PRN ×2 (00:56→01:03)
[2022-12-20 00:57] VITALS: BP 141/72
== END 2022-12-20 01:12 | disposition home or self-care (01) ==
LOC: ED 23:39
DX: D72.829 Elevated white blood cell count, unspecified (principal); R11.2 Nausea with vomiting, unspecified; R19.7 Diarrhea, unspecified; F17.200 Nicotine dependence, unspecified, uncomplicated
CPT/HCPCS: 36415; 80053; 83690; 85025; 96374; 99283; A9270

== ENCOUNTER 2024-03-14 11:44 | Emergency (ER) | payer OTHER ==
--- NOTE | 2024-03-14 12:13 | ED Physician Documentation ---
PD HPI FEMALE - Stated complaint Stated Complaint: FEMALE ,H/A - Additional information Additional information: 54-year-old female with history of ingrown hairs to her pelvic region, arrhythmia, PTSD, psoriasis presents emergency department for right groin pain. Patient says that she has a history of a lot of ingrown hairs in her ZAID area as she has had to have it incised and drained in the past she says she has been trying to do everything to manage this at home for the last few days over the last week and a half is when she first noticed that it has been getting worse every day now to the point where it is very tender to worsening close or wear anything over it. She also states that she has a history of migraines and started noticing new onset of migraine to the right side of her head today some spotted blue lights as well as white lights that has now fully resolved but pain to the right side of her head that feels very similar to previous migraines in the past. 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 : Other HEENT: Chronic vision loss Psych: Depression, Anxiety, Post traumatic stress disorder Musculoskeletal: Chronic back pain Derm: Psoriasis - Past Surgical History Past Surgical History: No - Present Medications Home Medications: Ambulatory Orders Medication Instructions Recorded Confirmed Metoprolol Tartrate 50 mg PO BID 09/20/18 12/20/22 PARoxetine [Paxil] 20 mg PO DAILY 09/20/18 12/20/22 Atorvastatin [Lipitor] 10 mg ORAL QPM 12/20/22 12/20/22 Clobetasol 0.05% Oint [Temovate 15 applic TOP DAILY 12/20/22 12/20/22 0.05% Oint] Losartan/Hydrochlorothiazide 1 each PO DAILY 12/20/22 12/20/22 [Hyzaar 50-12.5 Tablet] Ondansetron Odt [Zofran] 4 mg TL Q6H PRN #10 tablet 12/20/22 diazePAM [Valium] 5 mg PO ONCE PRN 12/20/22 12/20/22 hydrOXYzine HCL [Hydroxyzine HCl] 25 - 50 mg PO QID PRN 12/20/22 12/20/22 Doxycycline [Vibramycin] 100 mg PO BID 7 Days #14 tablet 03/14/24 - Allergies Allergies/Adverse Reactions: Allergies Allergy/AdvReac Type Severity Reaction Status Date / Time codeine Allergy Hives Verified 03/14/24 12:30 Iodinated Contrast Media Allergy Hives Verified 03/14/24 12:30 Penicillins Allergy Unknown Verified 03/14/24 12:30 polyethylene glycol 3350 Allergy Hives Verified 03/14/24 12:30 [From Miralax] ciprofloxacin [From Cipro] AdvReac Cramps Verified 03/14/24 12:30 NSAIDS (Non-Steroidal AdvReac Unknown Verified 03/14/24 12:30 Anti-Inflamma - Social History Does the pt smoke?: Yes Smoking Status: Current every day smoker Does the pt drink ETOH?: Yes Does the pt have substance abuse?: No - Immunizations Immunizations are current?: No Immunizations: TDAP >10years/unknown - POLST Patient has POLST: No PD ED PE NORMAL - Vitals Vital signs reviewed: Yes - General General: Alert and oriented X 3, No acute distress, Well developed/nourished - HEENT HEENT: Atraumatic, PERRL - Neck Neck: Supple, no meningeal sign - Cardiac Cardiac: RRR - Respiratory Respiratory: No respiratory distress - Abdomen Abdomen: Normal bowel sounds - Derm Derm: Other (right labia erythema with induration and fluctuance) - Neuro Neuro: Alert and oriented X 3, construction person 2-12 intact, No motor deficit, No sensory deficit, Normal speech Eye Opening: Spontaneous Motor: Obeys Commands Verbal: Oriented GCS Score: 15 - Psych Psych: Normal mood, Normal affect Results - Vitals Vitals: Vital Signs - 24 hr 03/14/24 03/14/24 12:13 14:06 Temperature 36.2 C L Heart Rate 69 65 Respiratory 22 18 Rate Blood Pressure 118/91 H 145/97 H O2 Saturation 97 100 Oxygen O2 Source Room air - Labs Labs: Laboratory Tests 03/14/24 03/14/24 12:15 12:15 WBC 11.0 H RBC 4.78 Hgb 14.8 Hct 44.5 MCV 93.1 MCH 31.0 MCHC 33.3 RDW 14.4 Plt Count 332 MPV 9.8 Neut # (Auto) 6.9 H Lymph # (Auto) 2.8 Dane # (Auto) 0.8 Eos # (Auto) 0.5 Baso # (Auto) 0.1 Absolute Nucleated RBC 0.00 Nucleated RBC % 0.0 Sodium 132 L Potassium 3.8 Chloride 98 L Carbon Dioxide 30 Anion Gap 4.0 L BUN 15 Creatinine 0.8 Estimated GFR (MDRD) 75 L Glucose 165 H Calcium 9.6 Magnesium 1.7 Total Bilirubin 0.5 AST 16 ALT 25 Alkaline Phosphatase 68 Total Protein 6.9 Albumin 4.4 Globulin 2.5 Albumin/Globulin Ratio 1.8 Lipase 106 H Procedures - Abscess I&D (location) right labia majora Preparation: Betadine, Alcohol, Lidocaine 2% Incision: Incised with scalpel, Purulent drainage, Loculations broken Other: Pt tolerated well, Dressing applied, Antibiotic prescribed PD Medical Decision Making - ED course ED course: 54-year-old female presents emergency department for right labia pain erythema induration fluctuance as well as's new migraine. In regards to the right labia she does appear to have an abscess that is to the labia majora see procedure note for further details but it was incised and drained without any difficulty small enough that it did not require any packing mild to moderate purulent drainage bacitracin applied over the wound she is told how to manage this at home and was started on doxycycline here in the emergency department because she does have untreated type 2 diabetes that she is currently trying to manage with diet and exercise. Prescription of doxycycline was sent to her preferred pharmacy on file Regards to the patient's migraine she says that she no longer has any vision changes this feels very similar to previous migraines she has had in the past she was given a liter of IV fluids in the emergency department as well as some IV Toradol and almost entirely resolved her migraine. She says that it has helped significantly. Labs are complete for further evaluation she does have minimally elevated leukocytosis, WBC of 11.0 mild hyponatremia 132 glucose is slightly elevated 165 and lipase is also slightly elevated 106 no abdominal pain. Patient was told to follow-up with her primary care provider about today's ER visit she was taught how to manage her right labia wound ER return precautions given I do not believe there is any further workup indicated for patient's migraine at this point in time as this according to patient feels very similar to previous migraines that she has had and has fully resolved with minimal medications here in the emergency department. All questions answered patient safe for discharge at this time. Departure - Departure Disposition: 01 Home, Self Care Clinical Impression: Abscess of labia, Ingrown hair Instructions: ED Abscess IandD Prescriptions: Doxycycline [Vibramycin] 100 mg PO BID 7 Days #14 tablet Comments: Thank for trusting us with your care. We have incised and drained the abscess to your right labia today. I am starting you on antibiotic called doxycycline here in the emergency department and I have sent this prescription to your preferred pharmacy on file. Please get back to the ER if you are noticing any worsening signs or symptoms of infection I would follow-up with someone to see if you can get some laser hair removal. The place I was telling you about is called [facility] their phone number is [phone] if [facility] do not do laser hair removal you could ask them if they have any places that they recommend. Forms: PCP List
[2024-03-14 12:20] LABS: BASOPHILS # (AUTO) 0.1 10^3/uL (0.0-0.1); BASOPHILS % (AUTO) 0.5 %; EOSINOPHILS # (AUTO) 0.5 10^3/uL (0.0-0.7); EOSINOPHILS % (AUTO) 4.2 %; HCT - HEMATOCRIT 44.5 % (37.0-47.0); HGB - HEMOGLOBIN 14.8 g/dL (12.0-16.0); LYMPHOCYTES # (AUTO) 2.8 10^3/uL (1.5-3.5); MEAN CORPUSCULAR HGB CONC 33.3 g/dL (32.0-36.0); MEAN CORPUSCULAR VOLUME 93.1 fL (81.0-99.0); MEAN PLATELET VOLUME 9.8 fL (7.9-10.8); MONOCYTES # (AUTO) 0.8 10^3/uL (0.0-1.0); MONOCYTES % (AUTO) 7.4 %; NEUTROPHILS # (AUTO) 6.9 10^3/uL (1.5-6.6); NEUTROPHILS % (AUTO) 62.6 %; PLT - PLATELET COUNT 332 10^3/uL (130-450); RED BLOOD COUNT 4.78 10^6/uL (4.20-5.40); RED CELL DISTRIBUTION WIDTH 14.4 % (12.0-15.0)
[2024-03-14] MEDS: SODIUM CHLORIDE 0.9% 1,000 ML IV ONE (12:22)
[2024-03-14] MEDS: LIDOCAINE 1%-EPI 1:100000 20 ML MDV SUBQ STA (12:22)
[2024-03-14] MEDS: KETOROLAC 30 MG/ML VIAL IVP STA (12:22)
[2024-03-14 12:38] LABS: ALBUMIN 4.4 g/dL (3.2-5.5); ALBUMIN/GLOBULIN RATIO 1.8 (1.0-2.2); BILIRUBIN,TOTAL 0.5 mg/dL (0.2-1.0); CALCIUM 9.6 mg/dL (8.5-10.3); CREATININE 0.8 mg/dL (0.6-1.3); MAGNESIUM 1.7 mg/dL (1.7-2.3); POTASSIUM 3.8 mmol/L (3.5-4.5); TOTAL PROTEIN 6.9 g/dL (6.4-8.9)
[2024-03-14] MEDS: BACITRACIN ZINC OINT 1 PACKET TOP STA (14:00)
[2024-03-14] MEDS: DOXYCYCLINE 100 MG TABLET PO STA (14:00)
[2024-03-14 14:16] VITALS: BP 145/97; O2SAT 100
== END 2024-03-14 14:15 | disposition home or self-care (01) ==
LOC: ED 11:44
DX: N76.4 Abscess of vulva (principal); L73.1 Pseudofolliculitis barbae; I49.9 Cardiac arrhythmia, unspecified; F43.10 Post-traumatic stress disorder, unspecified; Z79.899 Other long term (current) drug therapy; F17.200 Nicotine dependence, unspecified, uncomplicated
CPT/HCPCS: 10060; 36415; 80053; 83690; 83735; 85025; 96374; 99283; 99284; A9270